=== PATIENT | male | born 1960 | race Caucasian/White ===

== ENCOUNTER 2018-12-24 10:37 | Inpatient (IN) | payer OTHER ==
[~2018-12-24] VITALS: Ht 172.7 cm; Wt 117.3 kg
[2018-12-24] VITALS (8 sets, daily range): BP systolic 124–161; BP diastolic 54–86
[~2018-12-24 10:37] MED LIST: ASPI81TA52 PO; ATOR20TA PO; CHOL10002 PO; FENO145T38 PO; FOLI-101 PO; GLIP5TAB13 PO; LISI10TA4 PO; TICA90TA PO
[2018-12-24 11:31] LABS: BASOPHILS # (AUTO) 0.1 X10'3 (0-0.2); BASOPHILS % (AUTO) 1.2 % (0-1); EOSINOPHILS # (AUTO) 0.2 X10'3 (0-0.9); EOSINOPHILS % (AUTO) 1.7 % (0-6); HEMATOCRIT 42.4 % (42.0-52.0); HEMOGLOBIN 14.5 g/dl (14.0-17.9); MEAN CORPUSCULAR HEMOGLOBIN 31.3 PG (27.0-31.0); MEAN CORPUSCULAR HGB CONC 34.3 g/dL (33.0-36.5); MEAN CORPUSCULAR VOLUME 91.5 FL (78-98); MEAN PLATELET VOLUME 9.8 FL (7.4-10.4); MONOCYTES # (AUTO) 0.7 X10'3 (0-0.9); MONOCYTES % (AUTO) 7.7 % (2-12); NEUTROPHILS # (AUTO) 6.1 X10'3 (1.8-7.7); NEUTROPHILS % (AUTO) 67.4 % (42-75); PLATELET COUNT 222 X10'3 (140-440); RED BLOOD COUNT 4.64 X10'6 (4.70-6.10); RED CELL DISTRIBUTION WIDTH 13.3 % (11.5-14.5); WHITE BLOOD COUNT 9.1 X10'3 (4.5-11.0)
[2018-12-24 11:40] LABS: PARTIAL THROMBOPLASTIN TIME 26 SECONDS (22-32)
[2018-12-24 11:41] LABS: ALANINE AMINOTRANSFERASE 38 U/L (12-78); ALBUMIN 3.3 G/DL (3.4-5.0); ALBUMIN/GLOBULIN RATIO 0.8 (1.1-1.5); ALKALINE PHOSPHATASE 64 IU/L (46-116); ANION GAP 11 (8-16); ASPARTATE AMINO TRANSFERASE 116 U/L (10-37); BILIRUBIN,TOTAL 0.6 MG/DL (0.1-1.0); BLOOD UREA NITROGEN 16 MG/DL (7-18); CALCIUM 9.7 MG/DL (8.5-10.1); CHLORIDE 100 MMOL/L (99-107); CREATININE 1.23 MG/DL (0.60-1.10); GLUCOSE 373 MG/DL (70-104); POTASSIUM 4.1 MMOL/L (3.5-5.1); SODIUM 133 MMOL/L (135-145); TOTAL PROTEIN 7.5 G/DL (6.4-8.2); eGFR 60 ML/MIN
--- NOTE | 2018-12-24 11:52 | NUR ---
DR MCLAUGHLIN INFORMED PT ZERO HOUR TROPONIN 24.65, RECEIVED VERBAL ORDER FOR 324 ASA AND SL NITRO PER PROTOCOL FOR ACTIVE 03/12 CP NOW, DR BRYAN PT CP INTERMITTENT X 2 WEEKS AND CONSTANT SINCE LAST NIGHT AT 2300
[2018-12-24] MEDS ORDERED: aspirin 81mg tab.chew PO ONE (11:55)
[2018-12-24] MEDS: nitroGLYCERIN 0.4mg SUBLingual tab SL PRN ×2 (11:57→12:34)
[2018-12-24] MEDS ORDERED: heparin 25,000 UNIT/250ml bag 250 ML IV SCH (12:11)
[2018-12-24] MEDS ORDERED: nitroGLYCERIN-Tridil 50MG/D5W 250 ML IV PRN (12:11)
[2018-12-24] MEDS ORDERED: morphine 4 MG/ML inj SYRINge IV ONE (12:15)
[2018-12-24] MEDS ORDERED: heparin 10,000 units/1 ML INJ IV ONE (12:15)
--- NOTE | 2018-12-24 12:34 | NUR ---
DR. WILSON SPOKE TO DR. MCLAUGHLIN ABOUT THIS PT.
[2018-12-24] MEDS ORDERED: metoprolol tartrate 25mg tablet PO SCH (12:40)
[2018-12-24] MEDS ORDERED: atorvastatin 20mg tablet PO SCH (12:40)
[2018-12-24] MEDS ORDERED: LISI-600 PO (12:53)
[2018-12-24] MEDS ORDERED: METF-437 PO (12:56)
[2018-12-24] MEDS: tirofiban 5mg in NS 100mL 100 ML IV SCH ×3 (13:30→23:09)
--- NOTE | 2018-12-24 14:01 | NUR ---
EXTENSION TUBING PLACED ON ALL LINES. GROIN PREP DONE BY JEREMY AJY.
--- NOTE | 2018-12-24 14:05 | NUR ---
ANDREW FROM PEDIATRICS TEACHER AT BEDSIDE TO TRANSPORT PT TO PEDIATRICS TEACHER, EDITH WITH LAB DRAWING LABS PER ORDERS NOW, PT PLACED ON TRANSPORT MONITOR AND TO PEDIATRICS TEACHER WITH PEDIATRICS TEACHER STAFF AND DAIRY FE[employer] SALES CONSULTANT MISTY.
[2018-12-24] MEDS ORDERED: LIDOcaine 1% (10mg/ml)w/preservative injection 20ml MDV ONE (14:23)
[2018-12-24] MEDS ORDERED: fentaNYL/PF 50MCG/1 ML 2ML syringe ONE (14:23)
[2018-12-24] MEDS ORDERED: heparin 1,000unit/ml 10ml vial 10 ML ONE (14:23)
[2018-12-24] MEDS ORDERED: midazolam 2 mg/2 ml injection ONE (14:23)
[2018-12-24] MEDS ORDERED: iohexol 350 MG/1 ML 200ml bottle ONE ×2 (14:23→15:03)
[2018-12-24] MEDS ORDERED: insulin glargine (Lantus) pen - multi-dose SQ PRN (15:15)
[2018-12-24] MEDS ORDERED: vancomycin/NS 1 GM ADD-VANTAGE 250 ML IV ONE (15:15)
[2018-12-24] MEDS ORDERED: cefazolin/dext.iso 2gm/50ml 50 ML IV ONE (15:15)
[2018-12-24] MEDS ORDERED: dextrose 50%-water 50ml dispensing syringe IV PRN ×3 (15:15→16:30)
[2018-12-24] MEDS ORDERED: NUT.TX.IMPAIRED DIGEST FXN (Ensure Clear) 237 ML PO ONE (15:15)
[2018-12-24] MEDS ORDERED: MESSAGE TO NURSING PO ONE ×2 (15:15→15:40)
[2018-12-24] MEDS ORDERED: ceFAZolin 2gm in dextrose, iso 100 ML IV ONE (15:40)
[2018-12-24] MEDS ORDERED: OXAZEpam 15mg capsule PO PRN (16:10)
[2018-12-24] MEDS ORDERED: morphine 10mg/ml inj. IV PRN (16:10)
[2018-12-24] MEDS ORDERED: morphine 4 MG/ML inj SYRINge IV PRN (16:10)
[2018-12-24] MEDS ORDERED: HYDROcodone/acetaminophen 10/325mg tab PO PRN ×3 (16:10→16:30)
[2018-12-24] MEDS ORDERED: magnesium hydroxide 30ml (MOM) UD suspension PO PRN (16:30)
[2018-12-24] MEDS ORDERED: mag hydrox/Alum hydrox/simeth 30ml oral suspension PO PRN (16:30)
[2018-12-24] MEDS ORDERED: ondansetron/PF 4mg/2ml inj IV PRN (16:30)
[2018-12-24] MEDS ORDERED: morphine 2 MG/ML inj. syringe IV PRN (16:30)
[2018-12-24] MEDS ORDERED: magnesium Cl slow-release 64mg tablet PO PRN (16:30)
[2018-12-24] MEDS ORDERED: magnesium 2GM in 50ml NS 50 ML IV PRN (16:30)
[2018-12-24] MEDS ORDERED: potassium Cl 40MEQ/NS 500ml 500 ML IV PRN ×2 (16:30)
[2018-12-24] MEDS: K and/or MAG REPLACEMENT MC SCH (16:30)
[2018-12-24] MEDS ORDERED: MESSAGE TO PHARMACY PO ONE (16:30)
[2018-12-24] MEDS ORDERED: HYDROcodone/acetaminophen 5mg/325mg tablet PO PRN (16:30)
[2018-12-24] MEDS ORDERED: glucagon, human recombinant 1mg kit SUBCUT PRN (16:30)
[2018-12-24] MEDS ORDERED: dextrose ORAL solution 15 GM/59 ML bottle PO PRN ×2 (16:30)
[2018-12-24] MEDS ORDERED: potassium Cl 20 mEq SR tablet PO PRN ×2 (16:30)
[2018-12-24] MEDS ORDERED: magnesium 4gm in 100ml NS 100 ML IV PRN (16:30)
[2018-12-24] MEDS ORDERED: acetaminophen 325mg tablet PO PRN ×2 (16:30)
--- NOTE | 2018-12-24 16:30 | NUR ---
care assumed from Jorge Robledo, charge nurse, assessment done, pt is currently talking with multiple family members at bedside. Pt co of chest pressure, nitro gtt increased, signs of chest chest discomfort reviewed, reviewed right leg to remain straight, and not to lift his head. right groin without hematoma.
[2018-12-24 17:55] LABS: ABG BASE EXCESS -1.3 mmol/L (-2.0-3.0); ABG HCO3 22.3 mmol/L (22.0-26.0); ABG OXYGEN SATURATION 97.2 % (95-98); ABG PCO2 (T) 33.9 mmHg (35.0-48.0); ABG PH (T) 7.435 (7.350-7.450); FLOW 2 L/min; FMetHb 0.2 % (0.3-1.12); PATIENT TEMPERATURE 36.7; TOTAL HEMOGLOBIN 13.7 G/dl (14.0-18.0)
[2018-12-24 18:24] LABS: CLARITY,URINE CLEAR (Clear); COLOR,URINE YELLOW (Yellow); GLUCOSE, URINE >=1000 mg/dl (Neg); KETONES,URINE 15 mg/dl (Neg); LEUKOCYTE ESTERASE ,URINE NEGATIVE (Neg); NITRITES, URINE NEGATIVE (Neg); OCCULT BLOOD,URINE MODERATE (Neg); PROTEIN,URINE NEGATIVE (Neg); UROBILINOGEN,URINE 0.2 E.U/dL (0.2-1.0)
[2018-12-24 18:26] LABS: UA COLLECTION TYPE NON-SPECIFIED
[2018-12-24 18:41] LABS: BACTERIA,URINE NONE SEEN /HPF (Neg); SQUAMOUS EPITHELIAL CELL,UR FEW /LPF (FEW); WBC,URINE 0-4 /HPF (0-4)
[2018-12-24] MEDS ORDERED: metoprolol tartrate 12.5mg (1/2 tablet) PO SCH (20:00)
[2018-12-24] MEDS ORDERED: mupirocin 2% nasal ointment 1gm UD NS SCH (20:00)
[2018-12-24] MEDS ORDERED: insulin glargine (Lantus) pen - multi-dose SQ SCH (21:00)
--- NOTE | 2018-12-24 21:15 | NUR ---
per dr lainez do not call with elevated troponin
--- NOTE | 2018-12-24 21:20 | NUR ---
Patient in room ICU 2039. I have received report from NUSRAT Valerio, and had the opportunity to ask questions and assume patient care.
--- NOTE | 2018-12-24 21:33 | NUR ---
Pt resting in bed with eyes closed, VSS. Pt arouses readily to verbal stimuli, A/Ox4, appropriate conversation. Pt denies needs or requests at this time. Right groin sheath site inspected, no hematoma, swelling, or ecchymosis, distal pulses present and intact.
[2018-12-24] MEDS: insulin Lispro (HumaLOG) vial - multi-dose SQ SCH (22:16)
[2018-12-24] MEDS ORDERED: albuterol 2.5 MG/3 ML nebule ONE (22:21)
[2018-12-24] MEDS: heparin 10,000 units/1 ML INJ IV PRN (23:13)
--- NOTE | 2018-12-24 23:13 | NUR ---
PTT 33. 4,000 unit bolus of heparin given and gtt rate increased to 1200 units/hr.
[2018-12-25] VITALS (23 sets, daily range): BP systolic 87–137; BP diastolic 47–73
--- NOTE | 2018-12-25 01:00 | NUR ---
Pt reports general discomfort, states it's when you "lay in one position for too long". Pt offered PRN muscle relaxants. Pt declined, stated he'd like to see if repositioning would improve stiffness. Pt repositioned to left side, reports improved comfort. Denies any additional needs or requests at this time.
[2018-12-25 04:01] LABS: BASOPHILS % (AUTO) 0.4 % (0-1); EOSINOPHILS % (AUTO) 0.4 % (0-6); LYMPHOCYTES # (AUTO) 1.5 X10'3 (1.1-4.8); LYMPHOCYTES % (AUTO) 15.7 % (21-51); MEAN CORPUSCULAR HEMOGLOBIN 31.2 PG (27.0-31.0); MEAN CORPUSCULAR HGB CONC 34.4 g/dL (33.0-36.5); MEAN CORPUSCULAR VOLUME 90.7 FL (78-98); MEAN PLATELET VOLUME 9.4 FL (7.4-10.4); MONOCYTES # (AUTO) 1.2 X10'3 (0-0.9); MONOCYTES % (AUTO) 12.6 % (2-12); NEUTROPHILS # (AUTO) 6.7 X10'3 (1.8-7.7); NEUTROPHILS % (AUTO) 70.9 % (42-75); PLATELET COUNT 204 X10'3 (140-440); RED BLOOD COUNT 3.86 X10'6 (4.70-6.10); RED CELL DISTRIBUTION WIDTH 13.1 % (11.5-14.5); WHITE BLOOD COUNT 9.4 X10'3 (4.5-11.0)
[2018-12-25 04:17] LABS: ALANINE AMINOTRANSFERASE 44 U/L (12-78); ALBUMIN 2.6 G/DL (3.4-5.0); ALBUMIN/GLOBULIN RATIO 0.7 (1.1-1.5); ALKALINE PHOSPHATASE 49 IU/L (46-116); ANION GAP 10 (8-16); ASPARTATE AMINO TRANSFERASE 245 U/L (10-37); BILIRUBIN,TOTAL 0.5 MG/DL (0.1-1.0); BLOOD UREA NITROGEN 13 MG/DL (7-18); BUN/CREATININE RATIO 12.3 (5.4-32.0); CALCIUM 8.4 MG/DL (8.5-10.1); CHLORIDE 103 MMOL/L (99-107); CREATININE 1.06 MG/DL (0.60-1.10); GLUCOSE 307 MG/DL (70-104); MAGNESIUM 1.2 MG/DL (1.5-2.4); PHOSPHORUS 3.2 MG/DL (2.3-4.5); POTASSIUM 4.1 MMOL/L (3.5-5.1); SODIUM 137 MMOL/L (135-145); TOTAL CARBON DIOXIDE 24.4 MMOL/L (24-32); TOTAL PROTEIN 6.1 G/DL (6.4-8.2); eGFR 72 ML/MIN
[2018-12-25] MEDS: tirofiban 5mg in NS 100mL 100 ML IV SCH ×3 (04:24→14:54)
[2018-12-25] MEDS: morphine 2 MG/ML inj. syringe IV PRN ×2 (04:30→08:37)
[2018-12-25] MEDS: heparin 10,000 units/1 ML INJ IV PRN (04:45)
--- NOTE | 2018-12-25 04:45 | NUR ---
PTT 41. 4,000 unit heparin bolus given and gtt rate increased to 1,400 units/hr.
[2018-12-25] MEDS ORDERED: acetaminophen 1,000mg/100ml IV 100 ML IV ONE (05:11)
[2018-12-25] MEDS ORDERED: ROPIVAcaine 0.5% (5mg/ml) 30ml vial ONE (05:11)
[2018-12-25] MEDS ORDERED: gabapentin 400mg capsule PO ONE (05:30)
[2018-12-25] MEDS ORDERED: vancomycin/NS 1 GM ADD-VANTAGE 250 ML IV ONE (05:30)
[2018-12-25] MEDS ORDERED: ceFAZolin 2gm in dextrose, iso 100 ML IV ONE (05:30)
[2018-12-25] MEDS ORDERED: MESSAGE TO NURSING PO ONE ×4 (05:30→10:00)
[2018-12-25] MEDS ORDERED: mupirocin 2% nasal ointment 1gm UD NS SCH (05:30)
--- NOTE | 2018-12-25 06:41 | NUR ---
Problems reprioritized. Patient report given, questions answered & plan of care reviewed with NUSRAT Morales.
[2018-12-25] MEDS: K and/or MAG REPLACEMENT MC SCH (06:50)
--- NOTE | 2018-12-25 07:04 | NUR ---
Patient in room ICU 2039. I have received report from Zoraida Nunez RN and had the opportunity to ask questions and assume patient care.
[2018-12-25] MEDS ORDERED: multivitamins, therapeutics tablet PO SCH (08:00)
[2018-12-25] MEDS ORDERED: atorvastatin 20mg tablet PO SCH (08:00)
[2018-12-25] MEDS ORDERED: FOLIC ACID PO SCH (08:00)
[2018-12-25] MEDS ORDERED: MULTIVITS MIN PO SCH (08:00)
[2018-12-25] MEDS ORDERED: non-formulary drug (Atorvastatin Calcium (Lipitor) 1 TAB) PO SCH (08:00)
[2018-12-25] MEDS ORDERED: aspirin 81mg tablet.DR PO SCH ×2 (08:00)
[2018-12-25] MEDS ORDERED: vitamin D (cholecalciferol) 1,000 unit tablet PO SCH (08:00)
[2018-12-25] MEDS ORDERED: CHOLECALCIFEROL PO SCH (08:00)
[2018-12-25] MEDS ORDERED: lisinopril 20mg tablet PO SCH (08:00)
[2018-12-25] MEDS ORDERED: LUT PO SCH (08:00)
[2018-12-25] MEDS: insulin Lispro (HumaLOG) vial - multi-dose SQ SCH (08:33)
[2018-12-25] MEDS ORDERED: ringers solution, lacted 1,000 ML IV ONE (09:34)
[2018-12-25] MEDS ORDERED: pneumococcal 23-VAL P-sac vacc 25 mcg/0.5ml vial IMVAC ONE (10:00)
[2018-12-25] MEDS ORDERED: papaverine 30 mg/ml 2ml inj. ONE (11:00)
[2018-12-25] MEDS ORDERED: heparin 10,000 units/1 ML INJ ONE ×2 (11:00→11:56)
--- NOTE | 2018-12-25 11:05 | NUR ---
DM consult, patient has A1c of 10.9, will need written DM education handout with verbal review and referral to outpatient DM education class. Pt presented to ED with chest pain and admit with NSTEMI, he is s/p heart cath and to get surgical revascularization this afternoon. Pt will also need nutrition and wound healing after cardiac surgery education prior to d/c. Will continue to follow. Recommend: 1. Advance to no concentrated sweets/CHO controlled diet as medically indicated s/p surgery 2. DM and cardiac education prior to d/c s/p surgery 3. Wt per rx Addendum: 12/25/18 at [address] Amended: Links added.
[2018-12-25] MEDS ORDERED: midazolam 2 mg/2 ml injection ONE (11:38)
[2018-12-25] MEDS ORDERED: SUFENTANIL CITRATE 50 MCG/ML 2ml ampule IV ONE (11:38)
[2018-12-25] MEDS ORDERED: metoprolol tartrate 12.5mg (1/2 tablet) PO ONE (11:50)
[2018-12-25] MEDS ORDERED: potassium Cl 2 mEq/ml inj IV ONE (11:56)
[2018-12-25] MEDS ORDERED: calcium chloride 100 MG/1 ML inj IV ONE (11:56)
[2018-12-25] MEDS ORDERED: protamine sulf. 10mg/ml inj. IV ONE (11:56)
[2018-12-25] MEDS ORDERED: methylPREDNISolone sod succ 1000mg vial ONE (11:56)
[2018-12-25] MEDS ORDERED: phenylephrine 10mg/ml inj. ONE ×2 (11:56→17:09)
[2018-12-25] MEDS ORDERED: DOPamine/D5W 400mg/250ml bag IV ONE (11:56)
[2018-12-25] MEDS ORDERED: isoflurane 100ml inhalation liquid IH ONE (11:56)
[2018-12-25] MEDS ORDERED: aminocaproic acid 250 MG/1 ML inj. ONE (11:56)
[2018-12-25] MEDS ORDERED: magnesium sulf 1 GM/2 ML ONE (11:56)
[2018-12-25] MEDS ORDERED: albumin (human) 25% 100 ML IV solution IV ONE (11:56)
[2018-12-25] MEDS ORDERED: NORepinephrine bitartrate 8 MG in NS 250 ML BAG (32 mcg/ml) IV ONE (11:56)
[2018-12-25] MEDS ORDERED: nitroGLYCERIN in D5W 50mg/250ml (Tridil) infusion IV ONE (11:56)
[2018-12-25] MEDS ORDERED: LIDOcaine 2% (20 mg/ml) 5ml cardiac syringe ONE (11:56)
[2018-12-25] MEDS ORDERED: heparin 1,000 units/ml 10ml inj ONE (11:56)
[2018-12-25] MEDS ORDERED: sodium bicarbonate (8.4%) 1 mEq/ml syringe ONE (11:56)
[2018-12-25 12:50] LABS: ABG BASE EXCESS 0.5 mmol/L (-2.0-3.0); ABG HCO3 22.7 mmol/L (22.0-26.0); ABG OXYGEN SATURATION 99.5 % (95-98); ABG PCO2 29.5 mmHg (35.0-45.0); ABG PH 7.505 (7.350-7.450); ABG PO2 370.2 mmHg (60.0-100.0); CL (ABG) 102 mmol/L (99-107); FCOHb 0.6 % (0.5-1.5); FMetHb 0.5 % (0.3-1.12); FO2Hb 98.4 % (94-100); GLUCOSE (ABG) 366 mg/dl (70-105); NA (ABG) 132 mmol/L (135-145); TOTAL HEMOGLOBIN 12.3 G/dl (14.0-18.0)
[2018-12-25 13:36] LABS: ABG BASE EXCESS VENOUS -0.2 mmol/L; ABG PCO2 VENOUS 43.2 mmHg; ABG PO2 VENOUS 32.5 mmHg; CL (ABG) 101 mmol/L (99-107); FCOHb VENOUS 0.9 %; FHHb VENOUS 31.6 %; FMetHb VENOUS 0.4 %; FO2Hb VENOUS 67.1 %; GLUCOSE (ABG) 327 mg/dl (70-105); IONIZED CA (ABG) 1.13 mmol/L (1.03-1.32); K (ABG) 3.8 mmol/L (3.3-5.1); NA (ABG) 133 mmol/L (135-145); TOTAL HEMOGLOBIN 11.2 G/dl (14.0-18.0)
[2018-12-25 14:10] LABS: ABG BASE EXCESS -3.5 mmol/L (-2.0-3.0); ABG HCO3 20.8 mmol/L (22.0-26.0); ABG OXYGEN SATURATION 99.4 % (95-98); ABG PCO2 34.2 mmHg (35.0-45.0); ABG PH 7.402 (7.350-7.450); ABG PO2 515.9 mmHg (60.0-100.0); CL (ABG) 100 mmol/L (99-107); FMetHb 0.5 % (0.3-1.12); FO2Hb 97.9 % (94-100); GLUCOSE (ABG) 247 mg/dl (70-105); IONIZED CA (ABG) 1.05 mmol/L (1.03-1.32); NA (ABG) 131 mmol/L (135-145); TOTAL HEMOGLOBIN 8.9 G/dl (14.0-18.0)
[2018-12-25 14:30] LABS: ABG BASE EXCESS 1.2 mmol/L (-2.0-3.0); ABG HCO3 26.4 mmol/L (22.0-26.0); ABG OXYGEN SATURATION 99.2 % (95-98); ABG PCO2 44.9 mmHg (35.0-45.0); ABG PH 7.388 (7.350-7.450); CL (ABG) 101 mmol/L (99-107); FCOHb 0.4 % (0.5-1.5); FMetHb 0.3 % (0.3-1.12); FO2Hb 98.5 % (94-100); GLUCOSE (ABG) 264 mg/dl (70-105); IONIZED CA (ABG) 1.05 mmol/L (1.03-1.32); K (ABG) 3.7 mmol/L (3.3-5.1); NA (ABG) 135 mmol/L (135-145); TOTAL HEMOGLOBIN 9.3 G/dl (14.0-18.0)
[2018-12-25] MEDS ORDERED: ipratropium/albuterol 3ml nebule IH PRN (14:40)
[2018-12-25 15:00] LABS: ABG BASE EXCESS 3.1 mmol/L (-2.0-3.0); ABG HCO3 28.1 mmol/L (22.0-26.0); ABG OXYGEN SATURATION 99.4 % (95-98); ABG PCO2 45.2 mmHg (35.0-45.0); ABG PH 7.411 (7.350-7.450); ABG PO2 334.4 mmHg (60.0-100.0); CL (ABG) 100 mmol/L (99-107); FCOHb 0.8 % (0.5-1.5); FMetHb 0.3 % (0.3-1.12); FO2Hb 98.3 % (94-100); GLUCOSE (ABG) 241 mg/dl (70-105); IONIZED CA (ABG) 1.37 mmol/L (1.03-1.32); K (ABG) 3.7 mmol/L (3.3-5.1); NA (ABG) 133 mmol/L (135-145); TOTAL HEMOGLOBIN 8.6 G/dl (14.0-18.0)
[2018-12-25] MEDS ORDERED: insulin regular, human vial - multi-dose ONE (15:02)
[2018-12-25 15:06] LABS: ACT @ 1.70 U 259 SEC (193-297); ACT @ 2.84 U 340 SEC (260-420); BASELINE ACT 138 SEC (101-148)
[2018-12-25 15:31] LABS: ABG BASE EXCESS VENOUS 0.6 mmol/L; ABG HCO3 VENOUS 26.3 mmol/L; ABG PCO2 VENOUS 47.2 mmHg; ABG PO2 VENOUS 45.8 mmHg; CL (ABG) 103 mmol/L (99-107); FCOHb VENOUS 0.5 %; FHHb VENOUS 16.9 %; FMetHb VENOUS 0.6 %; GLUCOSE (ABG) 228 mg/dl (70-105); IONIZED CA (ABG) 1.22 mmol/L (1.03-1.32); K (ABG) 3.5 mmol/L (3.3-5.1); NA (ABG) 134 mmol/L (135-145); TOTAL HEMOGLOBIN 9.7 G/dl (14.0-18.0)
[2018-12-25] MEDS ORDERED: niCARDipine-NS 40mg/200ml IVPB 200 ML IV PRN (16:13)
[2018-12-25] MEDS ORDERED: nitroGLYCERIN-Tridil 50MG/D5W 250 ML IV PRN (16:13)
[2018-12-25] MEDS ORDERED: DOPamine 400mg/D5W 250ml 250 ML IV PRN (16:13)
[2018-12-25] MEDS ORDERED: sodium chloride 0.45% 1,000 ML IV SCH (16:13)
[2018-12-25] MEDS ORDERED: acetaminophen 325mg tablet PO PRN (16:15)
[2018-12-25] MEDS ORDERED: magnesium 4gm in 100ml NS 100 ML IV PRN (16:15)
[2018-12-25] MEDS ORDERED: normal saline 250ml IV soln 250 ML IV PRN (16:15)
[2018-12-25] MEDS ORDERED: insulin regular, human inj. 100 UNITS in normal saline 100ml IV soln 100 ML IV SCH ×2 (16:15)
[2018-12-25] MEDS ORDERED: potassium Cl 20 mEq SR tablet PO PRN (16:15)
[2018-12-25] MEDS ORDERED: morphine 4 MG/ML inj SYRINge IV PRN ×2 (16:15)
[2018-12-25] MEDS ORDERED: dextrose 50%-water 50ml dispensing syringe IV PRN (16:15)
[2018-12-25] MEDS ORDERED: magnesium 2GM in 50ml NS 50 ML IV PRN (16:15)
[2018-12-25] MEDS ORDERED: Neutra Phos packet PO PRN (16:15)
[2018-12-25] MEDS ORDERED: sodium phosphate inj. 15 MMOL in dextrose 5%-water 150 ML IV PRN (16:15)
[2018-12-25] MEDS ORDERED: sodium phosphate inj. 30 MMOL in dextrose 5%-water 250 ML IV PRN (16:15)
[2018-12-25] MEDS ORDERED: HYDROcodone/acetaminophen 10/325mg tab PO PRN (16:15)
[2018-12-25] MEDS ORDERED: pantoprazole 40 MG vial IV ONE (16:15)
[2018-12-25] MEDS ORDERED: metoclopramide 5 mg/ml inj IV PRN (16:15)
[2018-12-25] MEDS ORDERED: ondansetron/PF 4mg/2ml inj IV PRN (16:15)
[2018-12-25] MEDS ORDERED: magnesium hydroxide 30ml (MOM) UD suspension PO PRN (16:15)
[2018-12-25] MEDS ORDERED: morphine 10mg/ml inj. ONE (16:15)
--- NOTE | 2018-12-25 16:30 | NUR ---
Received to room 2039, accompanied by MDs and surgical crew. Placed on ventilator, to gambling monitor, arterial line and PA line pressure monitored. Chest tubes to suction at 20 cm. Urine cath to gravity drainage. Dressings are dry and intact. See assessment record. All vasoactive drugs are infusing via central line.
[2018-12-25 16:41] LABS: ABG BASE EXCESS 0.3 mmol/L (-2.0-3.0); ABG HCO3 25.8 mmol/L (22.0-26.0); ABG OXYGEN SATURATION 95.2 % (95-98); ABG PH (T) 7.368 (7.350-7.450); ABG PO2 (T) 81.7 mmHg (83-108); FCOHb 0.3 % (0.5-1.5); FMetHb 0.2 % (0.3-1.12); FO2Hb 94.7 % (94-100); MINUTE VOLUME 7 L/min; PATIENT TEMPERATURE 37.2; PEEP 5 cm H2O; RESPIRATORY RATE 10 b/min; TIDAL VOLUME 650 mL; TOTAL HEMOGLOBIN 11.5 G/dl (14.0-18.0)
[2018-12-25] MEDS: insulin regular, human 100 UNIT in normal saline 100ml IV soln 100 ML IV SCH ×4 (16:45→19:38)
[2018-12-25] MEDS ORDERED: acetaminophen 1,000mg/100ml IV 100 ML IV STA (16:48)
[2018-12-25 17:02] LABS: BASOPHILS % (AUTO) 0.2 % (0-1); EOSINOPHILS % (AUTO) 0.3 % (0-6); HEMATOCRIT 30.7 % (42.0-52.0); HEMOGLOBIN 10.5 g/dl (14.0-17.9); LYMPHOCYTES # (AUTO) 1.4 X10'3 (1.1-4.8); LYMPHOCYTES % (AUTO) 10.6 % (21-51); MEAN CORPUSCULAR HEMOGLOBIN 31.1 PG (27.0-31.0); MEAN CORPUSCULAR HGB CONC 34.3 g/dL (33.0-36.5); MEAN CORPUSCULAR VOLUME 90.6 FL (78-98); MEAN PLATELET VOLUME 9.3 FL (7.4-10.4); MONOCYTES # (AUTO) 1.4 X10'3 (0-0.9); MONOCYTES % (AUTO) 10.6 % (2-12); NEUTROPHILS # (AUTO) 10.3 X10'3 (1.8-7.7); NEUTROPHILS % (AUTO) 78.3 % (42-75); PLATELET COUNT 162 X10'3 (140-440); RED BLOOD COUNT 3.39 X10'6 (4.70-6.10); RED CELL DISTRIBUTION WIDTH 13.3 % (11.5-14.5); WHITE BLOOD COUNT 13.2 X10'3 (4.5-11.0)
[2018-12-25] MEDS ORDERED: NORepinephrine 8mg/ 250ml NS 250 ML IV SCH (17:05)
[2018-12-25] MEDS ORDERED: rocuronium 10mg/ml inj IV ONE (17:09)
[2018-12-25] MEDS ORDERED: LIDOcaine 2% (20mg/ml) 5ml vial ONE (17:09)
[2018-12-25] MEDS ORDERED: etomidate 2mg/ml inj. ONE (17:09)
[2018-12-25 17:18] LABS: ALANINE AMINOTRANSFERASE 34 U/L (12-78); ALBUMIN 2.3 G/DL (3.4-5.0); ALBUMIN/GLOBULIN RATIO 0.8 (1.1-1.5); ALKALINE PHOSPHATASE 34 IU/L (46-116); ANION GAP 5 (8-16); ASPARTATE AMINO TRANSFERASE 152 U/L (10-37); BILIRUBIN,TOTAL 0.4 MG/DL (0.1-1.0); BLOOD UREA NITROGEN 11 MG/DL (7-18); BUN/CREATININE RATIO 8.8 (5.4-32.0); CALCIUM 8.6 MG/DL (8.5-10.1); CHLORIDE 108 MMOL/L (99-107); CREATININE 1.25 MG/DL (0.60-1.10); GLUCOSE 171 MG/DL (70-104); POTASSIUM 3.6 MMOL/L (3.5-5.1); SODIUM 141 MMOL/L (135-145); TOTAL PROTEIN 5.1 G/DL (6.4-8.2); eGFR 59 ML/MIN
[2018-12-25 17:23] LABS: MAGNESIUM 3.7 MG/DL (1.5-2.4)
[2018-12-25 17:47] LABS: INR 1.1 INR; PARTIAL THROMBOPLASTIN TIME 34 SECONDS (22-32)
[2018-12-25] MEDS: potassium Cl 20mEq/100mL bag 100 ML IV PRN ×4 (17:58→23:28)
[2018-12-25] MEDS ORDERED: insulin Lispro (HumaLOG) vial - multi-dose SQ SCH (18:00)
[2018-12-25] MEDS ORDERED: sodium phosphate inj. 30 MMOL in dextrose 5%-water 250 ML IV ONE (18:05)
[2018-12-25] MEDS: albumin (Human) 5% 250ml 250 ML IV PRN ×2 (18:05→20:17)
--- NOTE | 2018-12-25 18:30 | NUR ---
Patient in room ICU 2039. I have received report from Carmen SILVERIO and had the opportunity to ask questions and assume patient care.
--- NOTE | 2018-12-25 18:30 | NUR ---
Patient in room ICU 2039. I have received report from Carmen SILVERIO and had the opportunity to ask questions and assume patient care. Pt received orally intubated secured with comfit. Moves all extremities. Right IJ swan line & central line intact.
--- NOTE | 2018-12-25 18:34 | NUR ---
Problems reprioritized. Patient report given, questions answered & plan of care reviewed with Stephany Patel RN.
[2018-12-25] MEDS: vancomycin/NS 1 GM ADD-VANTAGE 250 ML IV SCH (19:55)
[2018-12-25] MEDS: mupirocin 2% nasal ointment 1gm UD NS SCH (19:57)
[2018-12-25] MEDS ORDERED: metoprolol tartrate 12.5mg (1/2 tablet) PO SCH (20:00)
[2018-12-25] MEDS: docusate sod 100mg capsule PO SCH (20:00)
[2018-12-25] MEDS: gabapentin 300mg capsule PO SCH (21:00)
[2018-12-25 22:45] LABS: BASOPHILS % (AUTO) 0.1 % (0-1); EOSINOPHILS % (AUTO) 0 % (0-6); HEMATOCRIT 28.6 % (42.0-52.0); HEMOGLOBIN 9.8 g/dl (14.0-17.9); LYMPHOCYTES # (AUTO) 0.6 X10'3 (1.1-4.8); LYMPHOCYTES % (AUTO) 5.8 % (21-51); MEAN CORPUSCULAR HEMOGLOBIN 31.3 PG (27.0-31.0); MEAN CORPUSCULAR HGB CONC 34.4 g/dL (33.0-36.5); MEAN CORPUSCULAR VOLUME 91.2 FL (78-98); MEAN PLATELET VOLUME 9.4 FL (7.4-10.4); MONOCYTES # (AUTO) 0.5 X10'3 (0-0.9); MONOCYTES % (AUTO) 4.8 % (2-12); NEUTROPHILS # (AUTO) 9.2 X10'3 (1.8-7.7); NEUTROPHILS % (AUTO) 89.3 % (42-75); PLATELET COUNT 146 X10'3 (140-440); RED BLOOD COUNT 3.14 X10'6 (4.70-6.10); RED CELL DISTRIBUTION WIDTH 13.1 % (11.5-14.5); WHITE BLOOD COUNT 10.4 X10'3 (4.5-11.0)
[2018-12-25 22:56] LABS: ALBUMIN 2.5 G/DL (3.4-5.0); ANION GAP 8 (8-16); BLOOD UREA NITROGEN 12 MG/DL (7-18); BUN/CREATININE RATIO 10.6 (5.4-32.0); CALCIUM 8.3 MG/DL (8.5-10.1); CHLORIDE 110 MMOL/L (99-107); CREATININE 1.13 MG/DL (0.60-1.10); GLUCOSE 131 MG/DL (70-104); MAGNESIUM 2.8 MG/DL (1.5-2.4); PHOSPHORUS 2.1 MG/DL (2.3-4.5); POTASSIUM 4.3 MMOL/L (3.5-5.1); SODIUM 143 MMOL/L (135-145); eGFR 67 ML/MIN
[2018-12-25] MEDS: ceFAZolin 1GM/D5W- ADD-VANTAGE 50 ML IV SCH (23:37)
[2018-12-26] VITALS (25 sets, daily range): BP systolic 96–133; BP diastolic 42–79
[2018-12-26] MEDS: potassium Cl 20mEq/100mL bag 100 ML IV PRN (00:34)
[2018-12-26 02:56] LABS: ABG BASE EXCESS -1.9 mmol/L (-2.0-3.0); ABG HCO3 23.2 mmol/L (22.0-26.0); ABG OXYGEN SATURATION 97.6 % (95-98); ABG PH (T) 7.355 (7.350-7.450); ABG PO2 (T) 116.7 mmHg (83-108); FCOHb 0.2 % (0.5-1.5); FMetHb 0.1 % (0.3-1.12); FO2Hb 97.3 % (94-100); PEEP 5 cm H2O; RESPIRATORY RATE (OBSERVED) 12 b/min; TOTAL HEMOGLOBIN 11.2 G/dl (14.0-18.0)
--- NOTE | 2018-12-26 03:00 | NUR ---
Pt has been awake following commands. We attempted a SBT at 0100 but pt was breathing fast and shallow. Pt reattempted and was extubated at 0300 to 4L NC. Pt in minimal pain and is in good spirits. Follows instructions well.
[2018-12-26 03:40] LABS: BASOPHILS % (AUTO) 0.1 % (0-1); EOSINOPHILS % (AUTO) 0 % (0-6); HEMATOCRIT 30.7 % (42.0-52.0); HEMOGLOBIN 10.3 g/dl (14.0-17.9); LYMPHOCYTES # (AUTO) 0.9 X10'3 (1.1-4.8); LYMPHOCYTES % (AUTO) 6.3 % (21-51); MEAN CORPUSCULAR HEMOGLOBIN 30.9 PG (27.0-31.0); MEAN CORPUSCULAR HGB CONC 33.4 g/dL (33.0-36.5); MEAN CORPUSCULAR VOLUME 92.4 FL (78-98); MEAN PLATELET VOLUME 9.8 FL (7.4-10.4); MONOCYTES # (AUTO) 0.9 X10'3 (0-0.9); MONOCYTES % (AUTO) 6.6 % (2-12); NEUTROPHILS # (AUTO) 12.4 X10'3 (1.8-7.7); PLATELET COUNT 169 X10'3 (140-440); RED BLOOD COUNT 3.32 X10'6 (4.70-6.10); RED CELL DISTRIBUTION WIDTH 13.3 % (11.5-14.5); WHITE BLOOD COUNT 14.2 X10'3 (4.5-11.0)
[2018-12-26 03:51] LABS: ALANINE AMINOTRANSFERASE 31 U/L (12-78); ALBUMIN 2.6 G/DL (3.4-5.0); ALBUMIN/GLOBULIN RATIO 0.8 (1.1-1.5); ALKALINE PHOSPHATASE 40 IU/L (46-116); ANION GAP 8 (8-16); ASPARTATE AMINO TRANSFERASE 122 U/L (10-37); BILIRUBIN,TOTAL 0.3 MG/DL (0.1-1.0); BLOOD UREA NITROGEN 12 MG/DL (7-18); BUN/CREATININE RATIO 11.1 (5.4-32.0); CALCIUM 8.3 MG/DL (8.5-10.1); CHLORIDE 110 MMOL/L (99-107); CREATININE 1.08 MG/DL (0.60-1.10); GLUCOSE 120 MG/DL (70-104); MAGNESIUM 2.4 MG/DL (1.5-2.4); PHOSPHORUS 2.9 MG/DL (2.3-4.5); POTASSIUM 4.5 MMOL/L (3.5-5.1); SODIUM 143 MMOL/L (135-145); TOTAL CARBON DIOXIDE 25.2 MMOL/L (24-32); TOTAL PROTEIN 5.8 G/DL (6.4-8.2); eGFR 70 ML/MIN
[2018-12-26 04:08] LABS: PARTIAL THROMBOPLASTIN TIME 27 SECONDS (22-32)
[2018-12-26 05:01] LABS: ACTIVATED CLOTTING TIME 135 SEC (101-148)
[2018-12-26] MEDS ORDERED: LORazepam 2 mg/ml vial IV ONE (06:00)
[2018-12-26] MEDS ORDERED: famotidine 20mg tablet PO ONE (06:00)
--- NOTE | 2018-12-26 06:28 | NUR ---
Problems reprioritized. Patient report given, questions answered & plan of care reviewed with Selam SILVERIO.
--- NOTE | 2018-12-26 06:30 | NUR ---
Patient in room ICU 2039. I have received report from NUSRAT Hammond and had the opportunity to ask questions and assume patient care.
[2018-12-26] MEDS: mupirocin 2% nasal ointment 1gm UD NS SCH ×2 (08:00→19:39)
[2018-12-26] MEDS: metoprolol tartrate 12.5mg (1/2 tablet) PO SCH ×2 (08:00→18:44)
[2018-12-26] MEDS: ceFAZolin 1GM/D5W- ADD-VANTAGE 50 ML IV SCH ×3 (08:02→23:17)
[2018-12-26] MEDS ORDERED: dextrose 50%-water 50ml dispensing syringe IV PRN ×2 (08:35)
[2018-12-26] MEDS: aspirin 81mg tab.chew PO SCH (08:56)
[2018-12-26] MEDS: docusate sod 100mg capsule PO SCH ×2 (08:56→19:40)
[2018-12-26] MEDS: atorvastatin 10mg tablet PO SCH (08:56)
[2018-12-26] MEDS: vancomycin/NS 1 GM ADD-VANTAGE 250 ML IV SCH ×2 (09:01→19:39)
[2018-12-26] MEDS: gabapentin 300mg capsule PO SCH ×3 (09:05→20:29)
[2018-12-26] MEDS: HYDROcodone/acetaminophen 10/325mg tab PO PRN ×2 (09:06→16:38)
[2018-12-26] MEDS: insulin glargine (Lantus) pen - multi-dose SQ SCH (09:15)
[2018-12-26] MEDS: insulin Lispro (HumaLOG) vial - multi-dose SQ SCH ×3 (09:18→20:32)
--- NOTE | 2018-12-26 10:30 | NUR ---
Pt up to chair with PT tolerated walk well, all VS stable.
--- NOTE | 2018-12-26 14:50 | NUR ---
Pt walked 160ft 2 person min/mod assist. Pt tolerated well, all VS stable.
--- NOTE | 2018-12-26 14:56 | NUR ---
Pt back to bed.
--- NOTE | 2018-12-26 17:54 | NUR ---
Spoke with Sarbjit PRINCE regarding inceasingly high blood sugars. He states to give another 20 units of lantus after the 2100 BG check, and to continue checking his BG throughout the night more frequently than normal. He states he would prefer to try and keep the sugar controlled without having to go back on the drip if we can help it. Will inform night nurse and pharmacy of plan.
--- NOTE | 2018-12-26 18:30 | NUR ---
Patient in room ICU 2039. I have received report from NUSRAT Doss, and had the opportunity to ask questions and assume patient care.
--- NOTE | 2018-12-26 18:31 | NUR ---
Problems reprioritized. Patient report given, questions answered & plan of care reviewed with NUSRAT Conway.
--- NOTE | 2018-12-26 19:15 | NUR ---
Pt sitting up in bed eating dinner with family at bedside. Spo2 pleth poor, frequently reading low O2 sats. SpO2 monitor repositioned multiple times without change in quality of pleth. Pt denies SOB, dyspnea, CP, or other s/s's, able to speak in full sentences, NAD.
[2018-12-26] MEDS: lactobacillus rhamnosus 10,000 MMU CELLS/CAPSULE PO SCH (19:40)
[2018-12-26] MEDS ORDERED: insulin glargine (Lantus) pen - multi-dose SQ ONE (21:00)
--- NOTE | 2018-12-26 21:30 | NUR ---
Pt ambulated with steady gait approx 150 ft in halls with 2-person standby assistance. VSS during this time, pt denies dizziness, nausea or other s/s's. Assisted back to room and to bed.
--- NOTE | 2018-12-26 23:00 | NUR ---
Pt resting in bed with eyes closed, RR WNL, VSS, NAD. Repositioned and propped with pillows. Pt denies needs or requests, pain managed at this time. Will continue to monitor.
[2018-12-27] VITALS (15 sets, daily range): BP systolic 92–141; BP diastolic 50–88
--- NOTE | 2018-12-27 01:00 | NUR ---
Pt resting in bed with eyes closed, RR WNL, VSS, NAD. Arouses readily with verbal and tactile stimuli. Repositioned and propped with pillows. Pt denies any needs or requests at this time. Call murray and bedside table in reach, comfort ensured. Will continue to monitor.
[2018-12-27 02:56] LABS: BASOPHILS % (AUTO) 0.1 % (0-1); EOSINOPHILS % (AUTO) 0 % (0-6); HEMATOCRIT 27.8 % (42.0-52.0); HEMOGLOBIN 9.3 g/dl (14.0-17.9); LYMPHOCYTES % (AUTO) 8.4 % (21-51); MEAN CORPUSCULAR HEMOGLOBIN 31.2 PG (27.0-31.0); MEAN CORPUSCULAR HGB CONC 33.5 g/dL (33.0-36.5); MEAN CORPUSCULAR VOLUME 93.1 FL (78-98); MEAN PLATELET VOLUME 10.1 FL (7.4-10.4); MONOCYTES # (AUTO) 1.1 X10'3 (0-0.9); MONOCYTES % (AUTO) 9.9 % (2-12); NEUTROPHILS # (AUTO) 9.3 X10'3 (1.8-7.7); NEUTROPHILS % (AUTO) 81.6 % (42-75); PLATELET COUNT 135 X10'3 (140-440); RED BLOOD COUNT 2.99 X10'6 (4.70-6.10); RED CELL DISTRIBUTION WIDTH 13.4 % (11.5-14.5); WHITE BLOOD COUNT 11.3 X10'3 (4.5-11.0)
--- NOTE | 2018-12-27 03:00 | NUR ---
Resting in bed with eyes closed, RR WNL, VSS, NAD. Repositioned and propped with pillows. Denies needs or requests. Call murray and bedside table in reach. Will continue to monitor.
[2018-12-27 03:07] LABS: ALBUMIN 2.3 G/DL (3.4-5.0); ANION GAP 6 (8-16); BLOOD UREA NITROGEN 28 MG/DL (7-18); BUN/CREATININE RATIO 18.5 (5.4-32.0); CALCIUM 7.8 MG/DL (8.5-10.1); CHLORIDE 106 MMOL/L (99-107); CREATININE 1.51 MG/DL (0.60-1.10); GLUCOSE 311 MG/DL (70-104); MAGNESIUM 2.3 MG/DL (1.5-2.4); PHOSPHORUS 3.8 MG/DL (2.3-4.5); POTASSIUM 5.3 MMOL/L (3.5-5.1); SODIUM 138 MMOL/L (135-145); TOTAL CARBON DIOXIDE 25.6 MMOL/L (24-32); eGFR 48 ML/MIN
--- NOTE | 2018-12-27 05:00 | NUR ---
Pt resting in bed with eyes closed, RR WNL, VSS, NAD. Pt repositioned to back, O2 turned off at this time. Pt denies pain. Bladder scan completed, 0 mL residing in bladder. Pt denies needs or requests. Call murray and bedside table in reach, comfort ensured. Will continue to monitor.
--- NOTE | 2018-12-27 06:39 | NUR ---
Problems reprioritized. Patient report given, questions answered & plan of care reviewed with NUSRAT Rivas.
--- NOTE | 2018-12-27 06:44 | NUR ---
Patient in room ICU 2039. I have received report from NUSRAT Conway and had the opportunity to ask questions and assume patient care.
[2018-12-27] MEDS: docusate sod 100mg capsule PO SCH ×2 (07:28→19:34)
[2018-12-27] MEDS: lactobacillus rhamnosus 10,000 MMU CELLS/CAPSULE PO SCH ×2 (07:28→19:35)
[2018-12-27] MEDS: ceFAZolin 1GM/D5W- ADD-VANTAGE 50 ML IV SCH (07:28)
[2018-12-27] MEDS: gabapentin 300mg capsule PO SCH ×2 (07:29→13:16)
[2018-12-27] MEDS: pantoprazole 40mg Tablet.DR PO SCH (07:29)
[2018-12-27] MEDS: aspirin 81mg tab.chew PO SCH (07:29)
[2018-12-27] MEDS: atorvastatin 10mg tablet PO SCH (07:29)
[2018-12-27] MEDS: mupirocin 2% nasal ointment 1gm UD NS SCH (07:30)
[2018-12-27] MEDS ORDERED: furosemide 40mg/4ml inj IV ONE (07:50)
[2018-12-27] MEDS ORDERED: magnesium 4gm in 100ml NS 100 ML IV PRN (07:55)
[2018-12-27] MEDS ORDERED: potassium Cl 40MEQ/NS 500ml 500 ML IV PRN ×2 (07:55)
[2018-12-27] MEDS ORDERED: magnesium Cl slow-release 64mg tablet PO PRN (07:55)
[2018-12-27] MEDS ORDERED: potassium Cl 20 mEq SR tablet PO PRN ×2 (07:55)
[2018-12-27] MEDS ORDERED: magnesium 2GM in 50ml NS 50 ML IV PRN (07:55)
[2018-12-27] MEDS ORDERED: atorvastatin 20mg tablet PO SCH (08:00)
[2018-12-27] MEDS: K and/or MAG REPLACEMENT MC SCH (08:00)
[2018-12-27] MEDS: metoprolol tartrate 12.5mg (1/2 tablet) PO SCH ×2 (08:00→19:35)
[2018-12-27] MEDS: potassium Cl 20 mEq SR tablet PO SCH ×2 (08:00→20:00)
[2018-12-27] MEDS: magnesium Cl slow-release 64mg tablet PO SCH ×2 (08:00→19:35)
[2018-12-27] MEDS: insulin glargine (Lantus) pen - multi-dose SQ SCH (08:45)
[2018-12-27] MEDS: insulin Lispro (HumaLOG) vial - multi-dose SQ SCH ×3 (10:10→19:12)
--- NOTE | 2018-12-27 10:15 | NUR ---
Barkley & central line DC'd per MD orders. Pt spontaneously voiding in urinal.
[2018-12-27] MEDS ORDERED: atorvastatin 10mg tablet PO ONE (10:20)
--- NOTE | 2018-12-27 10:25 | NUR ---
0800 dose of metoprolol not given pending clarification with Dr. Arriaga. 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 MD currently in surgery, unavailable for consult. Spoke with pharmacist Dorothea re possible medication interaction, WPW syndrome not listed as a contraindication nor a precaution for this medication. Will f/u with Dr. Arriaga.
--- NOTE | 2018-12-27 10:55 | NUR ---
Problems reprioritized. Patient report given, questions answered & plan of care reviewed with NUSRAT Ambriz. Will transport pt to [facility] unit room 308.
--- NOTE | 2018-12-27 11:44 | NUR ---
Pt transported with all belongings, chart & insulin to [facility] room 308 via wheelchair. Pt ambulated with assistance in to chair at bedside without difficulty. Pt's present during transport.
--- NOTE | 2018-12-27 11:44 | NUR ---
Pt. arrived from ICU. Skin check with Evelyn SILVERIO complete, nothing noted. Pt. does not have any complaints.
[2018-12-27] MEDS: HYDROcodone/acetaminophen 10/325mg tab PO PRN ×2 (17:20→22:24)
--- NOTE | 2018-12-27 18:00 | NUR ---
Patient in room MED 308. I have received report from Pb and had the opportunity to ask questions and assume patient care.
--- NOTE | 2018-12-27 18:14 | NUR ---
Problems reprioritized. Patient report given, questions answered & plan of care reviewed with Ubaldo Manirque RN.
[2018-12-28 02:00] VITALS: BP 138/75
[2018-12-28 05:29] LABS: ALBUMIN 2.4 G/DL (3.4-5.0); ANION GAP 8 (8-16); BLOOD UREA NITROGEN 38 MG/DL (7-18); BUN/CREATININE RATIO 28.6 (5.4-32.0); CALCIUM 8.2 MG/DL (8.5-10.1); CHLORIDE 105 MMOL/L (99-107); CREATININE 1.33 MG/DL (0.60-1.10); GLUCOSE 112 MG/DL (70-104); MAGNESIUM 2.2 MG/DL (1.5-2.4); POTASSIUM 4.6 MMOL/L (3.5-5.1); SODIUM 140 MMOL/L (135-145); TOTAL CARBON DIOXIDE 27.3 MMOL/L (24-32); eGFR 55 ML/MIN
[2018-12-28 05:33] LABS: BASOPHILS % (AUTO) 0 % (0-1); EOSINOPHILS % (AUTO) 0 % (0-6); HEMATOCRIT 28.5 % (42.0-52.0); HEMOGLOBIN 9.7 g/dl (14.0-17.9); LYMPHOCYTES # (AUTO) 1.5 X10'3 (1.1-4.8); LYMPHOCYTES % (AUTO) 14.6 % (21-51); MEAN CORPUSCULAR HEMOGLOBIN 31.6 PG (27.0-31.0); MEAN CORPUSCULAR HGB CONC 34.1 g/dL (33.0-36.5); MEAN CORPUSCULAR VOLUME 92.7 FL (78-98); MEAN PLATELET VOLUME 10.1 FL (7.4-10.4); MONOCYTES % (AUTO) 9.3 % (2-12); NEUTROPHILS # (AUTO) 7.8 X10'3 (1.8-7.7); NEUTROPHILS % (AUTO) 76.1 % (42-75); PLATELET COUNT 169 X10'3 (140-440); RED BLOOD COUNT 3.08 X10'6 (4.70-6.10); RED CELL DISTRIBUTION WIDTH 13.2 % (11.5-14.5); WHITE BLOOD COUNT 10.3 X10'3 (4.5-11.0)
[2018-12-28 06:00] VITALS: BP 119/73
[2018-12-28] MEDS: atorvastatin 20mg tablet PO SCH (07:27)
[2018-12-28] MEDS: aspirin 81mg tab.chew PO SCH (07:27)
[2018-12-28] MEDS: lactobacillus rhamnosus 10,000 MMU CELLS/CAPSULE PO SCH ×2 (07:27→19:51)
[2018-12-28] MEDS: docusate sod 100mg capsule PO SCH ×2 (07:27→19:51)
[2018-12-28] MEDS: pantoprazole 40mg Tablet.DR PO SCH (07:28)
[2018-12-28] MEDS: metoprolol tartrate 12.5mg (1/2 tablet) PO SCH ×2 (07:28→19:53)
[2018-12-28] MEDS: insulin glargine (Lantus) pen - multi-dose SQ SCH (07:47)
[2018-12-28] MEDS: potassium Cl 20 mEq SR tablet PO SCH ×2 (08:00→20:00)
[2018-12-28] MEDS: K and/or MAG REPLACEMENT MC SCH (08:00)
[2018-12-28] MEDS: magnesium Cl slow-release 64mg tablet PO SCH ×2 (08:00→19:52)
[2018-12-28] MEDS: insulin Lispro (HumaLOG) vial - multi-dose SQ SCH ×3 (09:39→19:58)
[2018-12-28 11:00] VITALS: BP 154/85
[2018-12-28] MEDS: HYDROcodone/acetaminophen 10/325mg tab PO PRN (13:43)
[2018-12-28 15:00] VITALS: BP 130/75
[2018-12-28 18:00] VITALS: BP 140/76
--- NOTE | 2018-12-28 18:05 | NUR ---
Patient in room MED 308. I have received report from Norma and had the opportunity to ask questions and assume patient care.
--- NOTE | 2018-12-28 18:20 | NUR ---
Problems reprioritized. Patient report given, questions answered & plan of care reviewed with Wilberto SILVERIO.
[2018-12-28 22:00] VITALS: BP 137/72
[2018-12-29] MEDS: HYDROcodone/acetaminophen 10/325mg tab PO PRN ×3 (00:18→10:39)
[2018-12-29 02:00] VITALS: BP 149/79
[2018-12-29 05:28] LABS: ALBUMIN 2.3 G/DL (3.4-5.0); ANION GAP 6 (8-16); BLOOD UREA NITROGEN 28 MG/DL (7-18); BUN/CREATININE RATIO 26.9 (5.4-32.0); CALCIUM 8.3 MG/DL (8.5-10.1); CHLORIDE 106 MMOL/L (99-107); CREATININE 1.04 MG/DL (0.60-1.10); GLUCOSE 91 MG/DL (70-104); MAGNESIUM 2.1 MG/DL (1.5-2.4); POTASSIUM 4.3 MMOL/L (3.5-5.1); SODIUM 141 MMOL/L (135-145); TOTAL CARBON DIOXIDE 29.5 MMOL/L (24-32); eGFR 73 ML/MIN
[2018-12-29 05:32] LABS: BASOPHILS % (AUTO) 0.2 % (0-1); EOSINOPHILS % (AUTO) 0.3 % (0-6); HEMATOCRIT 31.2 % (42.0-52.0); HEMOGLOBIN 10.5 g/dl (14.0-17.9); LYMPHOCYTES # (AUTO) 1.6 X10'3 (1.1-4.8); LYMPHOCYTES % (AUTO) 15.7 % (21-51); MEAN CORPUSCULAR HEMOGLOBIN 31.4 PG (27.0-31.0); MEAN CORPUSCULAR HGB CONC 33.7 g/dL (33.0-36.5); MEAN CORPUSCULAR VOLUME 93.2 FL (78-98); MEAN PLATELET VOLUME 9.6 FL (7.4-10.4); MONOCYTES # (AUTO) 0.9 X10'3 (0-0.9); MONOCYTES % (AUTO) 9.3 % (2-12); NEUTROPHILS # (AUTO) 7.4 X10'3 (1.8-7.7); NEUTROPHILS % (AUTO) 74.5 % (42-75); PLATELET COUNT 208 X10'3 (140-440); RED BLOOD COUNT 3.35 X10'6 (4.70-6.10); RED CELL DISTRIBUTION WIDTH 13.5 % (11.5-14.5)
[2018-12-29 06:00] VITALS: BP 128/72
[2018-12-29] MEDS: pantoprazole 40mg Tablet.DR PO SCH (07:41)
[2018-12-29] MEDS: atorvastatin 20mg tablet PO SCH (07:42)
[2018-12-29 07:44] VITALS: BP_SYST 142
[2018-12-29] MEDS: metoprolol tartrate 12.5mg (1/2 tablet) PO SCH (07:44)
[2018-12-29] MEDS: lactobacillus rhamnosus 10,000 MMU CELLS/CAPSULE PO SCH (07:44)
[2018-12-29] MEDS: potassium Cl 20 mEq SR tablet PO SCH (07:44)
[2018-12-29] MEDS: aspirin 81mg tab.chew PO SCH (07:44)
[2018-12-29] MEDS: magnesium Cl slow-release 64mg tablet PO SCH (07:44)
[2018-12-29] MEDS: docusate sod 100mg capsule PO SCH (07:44)
[2018-12-29] MEDS: K and/or MAG REPLACEMENT MC SCH (08:00)
[2018-12-29] MEDS: insulin Lispro (HumaLOG) vial - multi-dose SQ SCH (08:22)
[2018-12-29] MEDS: insulin glargine (Lantus) pen - multi-dose SQ SCH (08:24)
[2018-12-29] MEDS ORDERED: COL100C PO (09:21)
[2018-12-29] MEDS ORDERED: HYDR-3972 PO (09:21)
[2018-12-29] MEDS ORDERED: METO25TA6 PO (09:21)
--- NOTE | 2018-12-29 12:00 | NUR ---
PROVIDED PATIENT WITH DISCHARGE INSTRUCTIONS WELL PRESCRIPTION INFORMATION AND INSTRUCTIONS FOR USE. PATIENT VERBALIZED UNDERSTANDING AND KNOWS TO HEALTH AND WELLNESS ADVISOR NEW MEDICATIONS AT [facility]. PATIENT GIVEN HARD COPY OF NORCO. PATIENT AWARE TO CALL FOR FOLLOW UP APPOINTMENTS WITH DR. FORD, DR. WILSON, AND HIS PRIMARY CARE DOCTOR. IV REMOVED, CATHETER INTACT, MINIMAL BLEEDING WITH CLEAN GAUZE APPLIED AND SECURED WITH TAPE. RN PROVIDED EDUCATION TO ADHERE TO STERNAL PRECAUTIONS FOR 6 WEEKS AND THAT IT IS OKAY TO SHOWER FOR LESS THAN 10 MINUTES PER DAY. PATIENT VERBALIZES UNDERSTANDING AND DENIES ANY QUESTIONS OR CONCERNS.
== END 2018-12-29 12:00 | disposition home health service (06) | DRG 231 ==
LOC: ER 10:37 → ICU 2S 15:49 → CMPBEDREQ 19:31 → MED 3N 12-27 12:00
PROVIDERS: ADMIT Emergency Medicine; ATTEND Emergency Medicine
PROC: 02703ZZ Dilation of Coronary Artery, One Artery, Percutaneous Approach (ICD-10-PCS; principal; 2018-12-24)
PROC: B2111ZZ Fluoroscopy of Multiple Coronary Arteries using Low Osmolar Contrast (ICD-10-PCS; 2018-12-24)
PROC: 4A023N7 Measurement of Cardiac Sampling and Pressure, Left Heart, Percutaneous Approach (ICD-10-PCS; 2018-12-24)
PROC: B2151ZZ Fluoroscopy of Left Heart using Low Osmolar Contrast (ICD-10-PCS; 2018-12-24)
PROC: B3121ZZ Fluoroscopy of Left Subclavian Artery using Low Osmolar Contrast (ICD-10-PCS; 2018-12-24)
PROC: 02HV33Z Insertion of Infusion Device into Superior Vena Cava, Percutaneous Approach (ICD-10-PCS; 2018-12-24)
PROC: 02100Z9 Bypass Coronary Artery, One Artery from Left Internal Mammary, Open Approach (ICD-10-PCS; 2018-12-25)
PROC: 021209W Bypass Coronary Artery, Three Arteries from Aorta with Autologous Venous Tissue, Open Approach (ICD-10-PCS; 2018-12-25)
PROC: 06BP4ZZ Excision of Right Saphenous Vein, Percutaneous Endoscopic Approach (ICD-10-PCS; 2018-12-25)
PROC: B24BZZ4 Ultrasonography of Heart with Aorta, Transesophageal (ICD-10-PCS; 2018-12-25)
PROC: 5A1221Z Performance of Cardiac Output, Continuous (ICD-10-PCS; 2018-12-25)
PROC: 3E0234Z Introduction of Serum, Toxoid and Vaccine into Muscle, Percutaneous Approach (ICD-10-PCS; 2018-12-26)
DX: T82.858A Stenosis of other vascular prosthetic devices, implants and grafts, initial encounter (principal); I21.4 Non-ST elevation (NSTEMI) myocardial infarction; I25.110 Atherosclerotic heart disease of native coronary artery with unstable angina pectoris; E11.21 Type 2 diabetes mellitus with diabetic nephropathy; E11.65 Type 2 diabetes mellitus with hyperglycemia; E78.5 Hyperlipidemia, unspecified; G89.4 Chronic pain syndrome; I10 Essential (primary) hypertension; I34.0 Nonrheumatic mitral (valve) insufficiency; E66.01 Morbid (severe) obesity due to excess calories; I45.6 Pre-excitation syndrome; Y83.8 Other surgical procedures as the cause of abnormal reaction of the patient, or of later complication, without mention of misadventure at the time of the procedure; Y71.3 Surgical instruments, materials and cardiovascular devices (including sutures) associated with adverse incidents; Z68.37 Body mass index [BMI] 37.0-37.9, adult; Z82.49 Family history of ischemic heart disease and other diseases of the circulatory system; Z95.5 Presence of coronary angioplasty implant and graft; Y92.89 Other specified places as the place of occurrence of the external cause; Z23 Encounter for immunization; Z88.8 Allergy status to other drugs, medicaments and biological substances; Z79.82 Long term (current) use of aspirin; Z79.84 Long term (current) use of oral hypoglycemic drugs; Z79.899 Other long term (current) drug therapy; Z83.49 Family history of other endocrine, nutritional and metabolic diseases
CPT/HCPCS: 0232T; 92920; 93306; 93312; 93325; 93458; 96365; 96368; 96375; 99285; Z7506; Z7508; 36415; 36600; 71045; 80048; 80053; 81001; 82330; 82435; 82803; 82947; 82948; 83036; 83735; 84100; 84132; 84295; 84484; 85018; 85025; 85347; 85384; 85610; 85730; 86885; 86900; 86901; 86920; 87070; 90732; 93005; 93880; 93922; 93930; 93970; 94002; 94003; 94060; 94640; 94760; 97110; 97116; 97161; 97530; 99152; 99153; A6255; A6257; A6258; A6402; A6446; A6449; A7000; A7048; C1725; C1751; C1769; C9113; G0378; J0131; J0690; J1265; J1644; J1815; J1940; J2001; J2060; J2150; J2250; J2270; J2370; J2405; J2440; J2720; J2795; J2930; J3010; J3246; J3370; J3475; J3480; J3490; J7030; J7060; J7120; P9045; P9047; Q9967

== ENCOUNTER 2019-04-25 12:47 | Emergency (ER) | payer OTHER, SELFPAY ==
[~2019-04-25] VITALS: Ht 170.2 cm; Wt 108.0 kg
[~2019-04-25 12:47] MED LIST changes: +COL100C PO; -FENO145T38 PO; +HYDR-3972 PO; -LISI10TA4 PO; +METF-437 PO; +METO25TA6 PO; -TICA90TA PO
[2019-04-25 13:35] LABS: BASOPHILS # (AUTO) 0.1 X10'3 (0-0.2); BASOPHILS % (AUTO) 1.1 % (0-1); EOSINOPHILS # (AUTO) 0.2 X10'3 (0-0.9); EOSINOPHILS % (AUTO) 3.2 % (0-6); HEMATOCRIT 41.2 % (42.0-52.0); HEMOGLOBIN 13.8 g/dl (14.0-17.9); LYMPHOCYTES # (AUTO) 2.3 X10'3 (1.1-4.8); LYMPHOCYTES % (AUTO) 31.3 % (21-51); MEAN CORPUSCULAR HEMOGLOBIN 28.9 PG (27.0-31.0); MEAN CORPUSCULAR HGB CONC 33.5 g/dL (33.0-36.5); MEAN CORPUSCULAR VOLUME 86.4 FL (78-98); MEAN PLATELET VOLUME 8.8 FL (7.4-10.4); MONOCYTES # (AUTO) 0.6 X10'3 (0-0.9); MONOCYTES % (AUTO) 8.7 % (2-12); NEUTROPHILS % (AUTO) 55.7 % (42-75); PLATELET COUNT 253 X10'3 (140-440); RED BLOOD COUNT 4.77 X10'6 (4.70-6.10); RED CELL DISTRIBUTION WIDTH 15.2 % (11.5-14.5); WHITE BLOOD COUNT 7.2 X10'3 (4.5-11.0)
[2019-04-25 13:43] LABS: PARTIAL THROMBOPLASTIN TIME 27 SECONDS (22-32)
[2019-04-25 13:47] LABS: ALANINE AMINOTRANSFERASE 26 U/L (12-78); ALBUMIN 3.5 G/DL (3.4-5.0); ALBUMIN/GLOBULIN RATIO 0.9 (1.1-1.5); ALKALINE PHOSPHATASE 48 IU/L (46-116); ANION GAP 6 (8-16); ASPARTATE AMINO TRANSFERASE 16 U/L (10-37); BILIRUBIN,TOTAL 0.3 MG/DL (0.1-1.0); BLOOD UREA NITROGEN 25 MG/DL (7-18); CALCIUM 8.8 MG/DL (8.5-10.1); CHLORIDE 107 MMOL/L (99-107); CREATININE 1.56 MG/DL (0.60-1.10); GLUCOSE 119 MG/DL (70-104); SODIUM 142 MMOL/L (135-145); TOTAL PROTEIN 7.3 G/DL (6.4-8.2); eGFR 46 ML/MIN
[2019-04-25] MEDS ORDERED: normal saline 1000ML IV soln IVB ONE ×2 (15:20→15:30)
--- NOTE | 2019-04-25 16:46 | NUR ---
patient on bed awake.no reported discomfort at this time.
[2019-04-25 17:52] VITALS: BP 142/78
[2019-04-25 17:59] LABS: D-DIMER 0.52 MG/L FEU (0-0.50)
== END 2019-04-25 17:54 | disposition home or self-care (01) ==
LOC: ER 12:47
DX: E86.0 Dehydration (principal); R07.89 Other chest pain; I25.10 Atherosclerotic heart disease of native coronary artery without angina pectoris; I10 Essential (primary) hypertension; I25.2 Old myocardial infarction; E11.9 Type 2 diabetes mellitus without complications; G89.29 Other chronic pain; Z98.61 Coronary angioplasty status; Z98.890 Other specified postprocedural states; Z79.82 Long term (current) use of aspirin; Z79.899 Other long term (current) drug therapy
CPT/HCPCS: 36415; 71045; 80053; 84484; 85025; 85379; 85610; 85730; 93005; 96360; 96361; 99284; J7030